=== PATIENT | female | born 1990 | race Two or more races ===

== ENCOUNTER 2024-12-22 17:05 | Emergency (ER) | payer OTHER ==
[~2024-12-22] VITALS: Ht 175.3 cm; Wt 71.7 kg
[2024-12-22] MEDS ORDERED: ONDANSETRON HCL 2 MG/ML VIAL IV ONE (18:15)
[2024-12-22] MEDS ORDERED: FAMOTIDINE/PF 20 MG/2 ML VIAL IV ONE (18:15)
[2024-12-22] MEDS ORDERED: RINGERS SOLUTION,LACTATED 1,000 ML IV ONE (18:15)
[2024-12-22] MEDS ORDERED: ONDANSETRON HCL 2 MG/ML VIAL ONE (18:22)
[2024-12-22] MEDS ORDERED: FAMOTIDINE/PF 20 MG/2 ML VIAL ONE (18:23)
[2024-12-22 18:49] LABS: BASO % 0.4 % (0.1-1.2); EOS # 0.13 (0.04-0.54); EOS % 1.7 % (0.7-7.0); LYMPH # 1.19 (1.18-3.74); LYMPH % 15.1 % (19.3-53.1); MEAN PLATELET VOLUME 11.10 fl (9.4-12.4); MONO # 0.61 (0.24-0.82); MONO % 7.8 % (4.7-12.5); NEUT # 5.89 (1.56-6.13); NEUT % 74.7 % (34.0-71.1); RED CELL DISTRIBUTION WIDTH 12.0 % (11.6-14.4)
[2024-12-22 19:21] LABS: ALT/SGPT 21.0 U/L (12-78); AST/SGOT 16.0 U/L (15-37); BILIRUBIN TOTAL 0.4 mg/dL (0.3-1.2); BUN CREA RATIO 8.0 (7.0-25.0); CREATININE SERUM 0.76 mg/dL (0.55-1.02); GFR 87.64; GLOBULINA 3.3 G/DL (2.4-3.5); GLUCOSE FASTING 87.0 mg/dL (65-100); OSMOLALITY SERUM 271.0 MOSM/KG (275-295)
[2024-12-22] MEDS ORDERED: ZOFRAN8 MG PO (21:28)
[2024-12-22] MEDS ORDERED: PEPCID AC20 MG PO (21:28)
[2024-12-22] MEDS ORDERED: METOCLOPRAMIDE10 MG PO (21:28)
== END 2024-12-22 22:02 | disposition home or self-care (01) ==
LOC: ER 17:05
PROVIDERS: General Practice
DX: O21.0 Mild hyperemesis gravidarum (principal); Z3A.12 12 weeks gestation of pregnancy